=== PATIENT | female | born 1975 | race African-American/Black ===

== ENCOUNTER 2017-07-22 23:13 | Emergency (ER) | payer BC ==
[2017-07-22] MEDS ORDERED: Ondansetron HCl/PF 4 MG/2 ML Vial ONE (23:36)
[2017-07-22 23:58] LABS: #Basophils 0.1 thou/uL (0.0-0.2); #Eosinphils 0.3 thou/uL (0.0-0.7); #Monocytes 0.6 thou/uL (0.11-0.59); #Neutrophils 4.5 thou/uL (1.40-6.50); %Basophils 1.3 % (0.0-1.0); %Eosinophils 3.1 % (0.0-10.0); %Monocytes 7.6 % (0.0-10.0); Hemoglobin 12.2 g/dL (12.0-16.0); Mean Corpuscular HGB CONC 31.9 g/dL (32.0-36.0); Mean Corpuscular Hemoglobin 25.4 pg (27.0-31.0); Mean Corpuscular Volume 79.6 fl (81.0-99.0); Mean Platelet Volume 8.8 fL (7.4-10.4); Platelet Count 257 thou/uL (130-400); RBC Distribution Width 12.7 % (11.5-14.5); White Blood Cell (WBC) Count 8.5 thou/uL (4.8-10.8)
[2017-07-23 01:32] LABS: ALT (SGPT) 16 U/L (8-55); AST (SGOT) 11 U/L (5-34); Albumin 3.4 g/dL (3.5-5.0); Alkaline Phosphatase 58 U/L (40-150); Anion Gap 9 mmol/L (10-20); BUN (Urea Nitrogen) 13 mg/dL (7.0-18.7); Bilirubin, Total 0.2 mg/dL (0.2-1.2); Calc. Creatinine Clearance 0 mL/min (70-130); Calcium 8.4 mg/dL (7.8-10.44); Carbon Dioxide 24 mmol/L (22-29); Chloride 108 mmol/L (98-107); Estimated GFR-MDRD Greater than 90; Globulin 2.7 g/dL (2.4-3.5); Glucose 100 mg/dL (70-105); Protein, Total 6.1 g/dL (6.0-8.3); Sodium 137 mmol/L (136-145)
[2017-07-23 02:09] LABS: Bilirubin Negative (Negative); Blood, Urine Negative (Negative); Clarity CLEAR (Clear); Glucose, Urine (Dipstick) Negative (Negative); Leukocyte Small (Negative); Nitrite Negative (Negative); Protein, Urine (Dipstick) Negative (Neg-Trace); Specific Gravity, Urine 1.012 (1.002-1.036); Urobilinogen 0.2 mg/dL (0.2-1.0)
[2017-07-23 02:10] LABS: Pregnancy Test - Urine (BHCG) Negative (Negative)
[2017-07-23 02:11] LABS: Bacteria/HPF Rare-Few HPF (None Seen); Hyaline Casts/LPF 0-3 HYALINE CAST LPF (0-3 Hyaline); Pregu Control Background? CLEAR/WHITE (CLR/WHITE); Pregu Control Bar Appear? YES (CONTROL BAR); RBC/HPF 0-3 HPF (0-3); Specific Gravity 1.012 (1.002-1.036)
--- NOTE | 2017-07-23 07:05 | ULT ---
PELVIS ULTRASOUND: 07/22/2017 HISTORY: Left lower quadrant pain. History of uterine ablation for heavy bleeding. history of ovarian cysts. COMPARISON: None. TECHNIQUE: Multiplanar jerome-scale sonographic imaging of the pelvis obtained with transabdominal and endovaginal imaging. The ovaries are assessed with color-flow and spectral analysis. FINDINGS: The endometrium is thin, linear, and echogenic, measuring 3-4 mm in AP dimension. This appearance ma y, in part, be on the basis of the patient's history of uterine ablation. The uterus measures 8.7 x 3.6 x 5.2 cm. There is a hypoechoic/cystic area within the uterus, near the fundus, within the submucosal region, m easuring 1.6 x 1.2 x 2.2 cm, nonspecific. This may represent a submucosal cyst or a cystic fibroid. The right ovary measures 4.2 x 3.8 x 2.3 cm, and the left ovary measures 4.5 x 3 x 3.1 cm. There is a right ovarian cyst, measuring 1.2 x 1.9 x 1.3 cm, and there is a left ovarian cyst, measuring 1.5 x 1.1 x 2 cm. There is normal blood flow within both ovaries. No free fluid is seen in the pelvis. There is hypoechoic area in the region of the cervix, measuring 6 x 8 x 6 mm, which may represent a c omplex nabothian cyst or a low lying fibroid. IMPRESSION: Numerous incidental findings, as described above. No acute findings are noted. POS: [facility]
== END 2017-07-23 02:36 | disposition home or self-care (01) ==
LOC: ERS 23:13
DX: R10.32 Left lower quadrant pain (principal); F17.210 Nicotine dependence, cigarettes, uncomplicated
CPT/HCPCS: 76856; 80053; 81003; 81015; 81025; 85025; 87086; 96361; 96374; 96375; 99406; J2270; J2405

== ENCOUNTER 2017-08-05 14:49 | Outpatient (CLI) | payer BC | END 2017-08-05 14:50 | disposition home or self-care (01) | LOC: BICMAMMO 14:49 | PROVIDERS: ATTEND Physician Assistant | DX: Z12.31 Encounter for screening mammogram for malignant neoplasm of breast (principal) | CPT/HCPCS: 77063; 77067 ==

== ENCOUNTER 2018-01-30 19:25 | Emergency (ER) | payer BC ==
[2018-01-30 19:48] LABS: #Basophils 0.1 thou/uL (0.0-0.2); #Eosinphils 0.3 thou/uL (0.0-0.7); #Monocytes 0.7 thou/uL (0.11-0.59); #Neutrophils 4.1 thou/uL (1.40-6.50); %Eosinophils 2.7 % (0.0-10.0); %Lymphocytes 49.4 % (21.0-51.0); %Monocytes 6.6 % (0.0-10.0); %Neutrophils 40.3 % (42.0-75.0); Hemoglobin 12.4 g/dL (12.0-16.0); Mean Corpuscular HGB CONC 33.3 g/dL (32.0-36.0); Mean Corpuscular Hemoglobin 25.8 pg (27.0-31.0); Mean Corpuscular Volume 77.3 fL (78.0-98.0); Mean Platelet Volume 7.9 fL (7.4-10.4); Platelet Count 281 thou/uL (130-400); RBC Distribution Width 12.6 % (11.5-14.5); Red Blood Cell (RBC) Count 4.82 mill/uL (4.20-5.40); White Blood Cell (WBC) Count 10.2 thou/uL (4.8-10.8)
[2018-01-30 20:08] LABS: ALT (SGPT) 19 U/L (8-55); AST (SGOT) 14 U/L (5-34); Albumin 3.9 g/dL (3.5-5.0); Alkaline Phosphatase 71 U/L (40-150); Anion Gap 12 mmol/L (10-20); BUN (Urea Nitrogen) 9 mg/dL (7.0-18.7); Bilirubin, Total 0.2 mg/dL (0.2-1.2); Calc. Creatinine Clearance 0 mL/min (70-130); Calcium 8.6 mg/dL (7.8-10.44); Carbon Dioxide 23 mmol/L (22-29); Chloride 106 mmol/L (98-107); Estimated GFR-MDRD Greater than 90; Globulin 3.3 g/dL (2.4-3.5); Glucose 104 mg/dL (70-105); Lipase 18 U/L (8-78); Protein, Total 7.2 g/dL (6.0-8.3); Sodium 138 mmol/L (136-145)
[2018-01-30] MEDS ORDERED: Ondansetron HCl/PF 4 MG/2 ML Vial ONE (20:09)
[2018-01-30 20:10] LABS: Potassium 2.9 mmol/L (3.5-5.1)
[2018-01-30 20:14] LABS: BHCG - Serum Negative (NEGATIVE); Pregs Control Background? CLEAR/WHITE (CLR/WHITE); Pregs Control Bar Appear? YES (CONTROL BAR)
--- NOTE | 2018-01-30 20:59 | ULT ---
SONOGRAM RIGHT UPPER QUADRANT 01/30/18 HISTORY: Right upper quadrant pain. FINDINGS: Gallbladder has a normal appearance. Common duct is 0.2 cm. Liver unremarkable without focal mass or intrahepatic biliary dilatation. No free fluid. IMPRESSION: No evidence of gallstones or biliary obstruction. POS: [facility]
[2018-01-30] MEDS ORDERED: Potassium Chloride 20 MEQ TAB ONE (21:25)
[2018-01-30 21:48] LABS: Bilirubin Negative (Negative); Blood, Urine Negative (Negative); Clarity CLEAR (Clear); Glucose, Urine (Dipstick) Negative (Negative); Leukocyte Negative (Negative); Nitrite Negative (Negative); Protein, Urine (Dipstick) Negative (Neg-Trace); Specific Gravity, Urine 1.005 (1.002-1.036); Urobilinogen 0.2 mg/dL (0.2-1.0)
[2018-01-30] MEDS ORDERED: Lidocaine Viscous Sol 2% 15 ml UD Cup ONE (22:02)
[2018-01-30] MEDS ORDERED: Mag-Al 1200 mg/1200 mg/30 ML UDCUP ONE (22:02)
[2018-01-30 22:41] LABS: CKMB 1.1 ng/mL (0-6.6); Troponin I Less than 0.010 ng/mL (< 0.028)
== END 2018-01-30 22:47 | disposition home or self-care (01) ==
LOC: ERS 19:25
DX: R10.11 Right upper quadrant pain (principal); F17.210 Nicotine dependence, cigarettes, uncomplicated; Z71.6 Tobacco abuse counseling
CPT/HCPCS: 36415; 76705; 80053; 81003; 82553; 83690; 84484; 84703; 85025; 93005; 96361; 96372; 96374; 96375; 99406; J2270; J2405

== ENCOUNTER 2018-02-17 07:21 | Outpatient (CLI) | payer BC ==
--- NOTE | 2018-02-17 13:30 | NM ---
NUCLEAR MEDICINE HIDA SCAN: HISTORY: Right upper quadrant pain. COMPARISON: None. TECHNIQUE: The patient was administered 5.3 mCi of Technetium 99m mebrofenin intravenously. The patient was giv en 8 ounces of Ensure to determine EF. FINDINGS: There is appropriate uptake of the radiotracer by the hepatic parenchyma. There is passage of radiot racer from the common bile duct into the small bowel loops. There is localization of radiotracer int o the gallbladder. Gallbladder ejection fraction is 54%. IMPRESSION: 1. No sonographic evidence of acute cholecystitis. 2. Normal gallbladder ejection fraction. POS: [facility]
== END 2018-02-17 07:22 | disposition home or self-care (01) ==
LOC: NM 07:21
PROVIDERS: ATTEND Family Medicine
DX: R10.11 Right upper quadrant pain (principal)
CPT/HCPCS: 78227; A9537

== ENCOUNTER 2018-09-01 23:17 | Emergency (ER) | payer BC ==
[2018-09-01] MEDS ORDERED: Metoclopramide HCl 10 MG/2 ML VIAL ONE (23:50)
[2018-09-01] MEDS ORDERED: diphenhydrAMINE 50 MG/ML VIAL ONE (23:50)
[2018-09-02] MEDS ORDERED: Ketorolac Tromethamine 30 MG/ML VIAL ONE (00:30)
--- NOTE | 2018-09-02 08:10 | CT ---
FPRELIMINARY REPORT BY [facility]: EXAM: CT Head Without Contrast EXAM DATE/TIME: 09/02/2018 12:00 AM CLINICAL HISTORY: 43 years old, female; Pain; Headache; Headache not specified; Patient HX: Headache since yesterday- no history of migraines, constant throbbing on right side TECHNIQUE: Imaging protocol: Axial computed tomography images of the head/brain without contrast. COMPARISON: No relevant prior studies available. FINDINGS: Brain: No acute findings. No hemorrhage. No significant white matter disease. No edema. Ventricles: No acute findings. No ventriculomegaly. Bones/joints: No acute fracture. Sinuses: No acute findings. No significant air-fluid levels. Mastoid air cells: No acute findings. No mastoid effusion. Soft tissues: No acute findings. IMPRESSION: No acute intracranial abnormality. Thank you for allowing us to participate in the care of your patient. Dictated and Authenticated by: Jose Barr MD 09/02/2018 1:09 AM Central Time ([place] & [place]) Final interpretation CT head without contrast: 09/02/2018 HISTORY: Headache FINDINGS: I agree with the preliminary fever had report. The imaged paranasal sinuses and mastoid air cells are well aerated. No displaced calvarial fracture, intracranial hemorrhage, midline shift, or mass effect. IMPRESSION: No acute findings CODE QA Transcribed Date/Time: 09/02/2018 8:09 AM
== END 2018-09-02 01:45 | disposition home or self-care (01) ==
LOC: ERS 23:17
DX: R51 Headache (principal); F17.210 Nicotine dependence, cigarettes, uncomplicated
CPT/HCPCS: 70450; 93005; 96365; 96375; J1200; J1885; J2765

== ENCOUNTER 2018-11-23 19:57 | Emergency (ER) | payer BC ==
[2018-11-23 20:23] LABS: #Basophils 0.1 thou/uL (0.0-0.2); #Eosinphils 0.3 thou/uL (0.0-0.7); #Lymphocytes 2.8 thou/uL (1.20-3.40); #Monocytes 0.6 thou/uL (0.11-0.59); #Neutrophils 4.2 thou/uL (1.40-6.50); %Basophils 1.6 % (0.0-1.0); %Eosinophils 3.5 % (0.0-10.0); %Lymphocytes 35.5 % (21.0-51.0); %Neutrophils 52.5 % (42.0-75.0); Mean Corpuscular HGB CONC 31.7 g/dL (32.0-36.0); Mean Corpuscular Hemoglobin 25.1 pg (27.0-31.0); Mean Corpuscular Volume 79.2 fL (78.0-98.0); Mean Platelet Volume 8.2 fL (7.4-10.4); Platelet Count 253 thou/uL (130-400); RBC Distribution Width 12.1 % (11.5-14.5); Red Blood Cell (RBC) Count 4.78 mill/uL (4.20-5.40)
[2018-11-23] MEDS ORDERED: Meclizine HCl 25 MG TAB ONE (20:34)
[2018-11-23 20:43] LABS: ALT (SGPT) 17 U/L (8-55); AST (SGOT) 11 U/L (5-34); Albumin 3.7 g/dL (3.5-5.0); Alkaline Phosphatase 69 U/L (40-150); Anion Gap 11 mmol/L (10-20); BUN (Urea Nitrogen) 8 mg/dL (7.0-18.7); Bilirubin, Total 0.3 mg/dL (0.2-1.2); Calc. Creatinine Clearance 0 mL/min (70-130); Calcium 8.9 mg/dL (7.8-10.44); Carbon Dioxide 27 mmol/L (22-29); Chloride 105 mmol/L (98-107); Estimated GFR-MDRD Greater than 90; Glucose 93 mg/dL (70-105); Potassium 3.3 mmol/L (3.5-5.1); Protein, Total 6.7 g/dL (6.0-8.3); Sodium 140 mmol/L (136-145)
[2018-11-23] MEDS ORDERED: Lorazepam 2 MG/ML VIAL ONE (21:06)
[2018-11-23] MEDS ORDERED: Dexamethasone 10 MG/ML VIAL ONE (21:06)
== END 2018-11-23 21:58 | disposition home or self-care (01) ==
LOC: ERS 19:57
DX: R42 Dizziness and giddiness (principal); R11.0 Nausea; F17.210 Nicotine dependence, cigarettes, uncomplicated
CPT/HCPCS: 36415; 80053; 85025; 96374; 96375; J1100; J2060; J8597

== ENCOUNTER 2019-03-24 01:34 | Emergency (ER) | payer BC ==
[2019-03-24] MEDS ORDERED: diphenhydrAMINE 50 MG/ML VIAL ONE (02:00)
[2019-03-24] MEDS ORDERED: Metoclopramide HCl 10 MG/2 ML VIAL ONE (02:00)
[2019-03-24] MEDS ORDERED: Dexamethasone 10 MG/ML VIAL ONE (02:00)
== END 2019-03-24 03:25 | disposition home or self-care (01) ==
LOC: ERS 01:34
DX: R51 Headache (principal); F17.210 Nicotine dependence, cigarettes, uncomplicated; Z71.6 Tobacco abuse counseling
CPT/HCPCS: 96365; 96367; 96375; 99406; J1100; J1200; J2765; J3475; J3490

== ENCOUNTER 2019-06-15 23:13 | Emergency (ER) | payer BC ==
[2019-06-15 23:51] LABS: #Basophils 0.1 thou/uL (0.0-0.2); #Eosinphils 0.3 thou/uL (0.0-0.7); #Lymphocytes 2.7 thou/uL (1.20-3.40); #Monocytes 0.8 thou/uL (0.11-0.59); #Neutrophils 5.8 thou/uL (1.40-6.50); %Basophils 1.4 % (0.0-1.0); %Eosinophils 3.1 % (0.0-10.0); %Lymphocytes 27.9 % (21.0-51.0); %Monocytes 8.2 % (0.0-10.0); %Neutrophils 59.4 % (42.0-75.0); Hemoglobin 12.2 g/dL (12.0-16.0); Mean Corpuscular HGB CONC 32.1 g/dL (32.0-36.0); Mean Corpuscular Volume 77.7 fL (78.0-98.0); Mean Platelet Volume 8.9 fL (7.4-10.4); Platelet Count 261 thou/uL (130-400); RBC Distribution Width 12.2 % (11.5-14.5); Red Blood Cell (RBC) Count 4.89 mill/uL (4.20-5.40); White Blood Cell (WBC) Count 9.8 thou/uL (4.8-10.8)
[2019-06-16 00:11] LABS: ALT (SGPT) 18 U/L (8-55); AST (SGOT) 13 U/L (5-34); Albumin 3.6 g/dL (3.5-5.0); Alkaline Phosphatase 65 U/L (40-110); Anion Gap 10 mmol/L (10-20); BUN (Urea Nitrogen) 10 mg/dL (7.0-18.7); Bilirubin, Total 0.3 mg/dL (0.2-1.2); Calc. Creatinine Clearance 0 mL/min (70-130); Calcium 8.6 mg/dL (7.8-10.44); Carbon Dioxide 24 mmol/L (22-29); Chloride 108 mmol/L (98-107); Estimated GFR-MDRD Greater than 90; Globulin 3.1 g/dL (2.4-3.5); Glucose 103 mg/dL (70-105); Lipase 17 U/L (8-78); Potassium 3.9 mmol/L (3.5-5.1); Protein, Total 6.7 g/dL (6.0-8.3); Sodium 138 mmol/L (136-145)
[2019-06-16] MEDS ORDERED: Ondansetron PF 4 MG/2 ML Vial ONE (00:11)
[2019-06-16] MEDS ORDERED: Morphine 4 MG/ML VIAL ONE (00:11)
[2019-06-16 00:41] LABS: Bilirubin Negative (Negative); Blood, Urine Negative (Negative); Clarity Clear (Clear); Glucose, Urine (Dipstick) Normal (Negative); Leukocyte Negative Leu/uL (Negative); Nitrite Negative (Negative); Protein, Urine (Dipstick) Negative (Neg-Trace); Urobilinogen Normal mg/dL (Less than 2)
[2019-06-16 01:02] LABS: Pregnancy Test - Urine (BHCG) Negative (Negative); Pregu Control Background? CLEAR/WHITE (CLR/WHITE); Pregu Control Bar Appear? YES (CONTROL BAR); Specific Gravity 1.024 (1.002-1.036)
== END 2019-06-16 01:35 | disposition home or self-care (01) ==
LOC: ERS 23:13
DX: R10.31 Right lower quadrant pain (principal); F17.210 Nicotine dependence, cigarettes, uncomplicated; Z71.6 Tobacco abuse counseling
CPT/HCPCS: 80053; 81003; 81025; 83690; 85025; 96361; 96374; 96375; 99406; J2270; J2405

== ENCOUNTER 2020-09-07 11:50 | Outpatient (CLI) | payer BC | END 2020-09-07 11:51 | disposition home or self-care (01) | LOC: BICMAMMO 11:50 | PROVIDERS: ATTEND Physician Assistant | DX: Z12.31 Encounter for screening mammogram for malignant neoplasm of breast (principal); Z80.3 Family history of malignant neoplasm of breast | CPT/HCPCS: 77063; 77067 ==

== ENCOUNTER 2021-07-20 11:01 | Emergency (ER) | payer BC ==
[2021-07-20] MEDS ORDERED: Ketorolac Tromethamine 30 MG/ML VIAL ONE (12:49)
== END 2021-07-20 13:00 | disposition home or self-care (01) ==
LOC: ERS 11:01
DX: S39.012A Strain of muscle, fascia and tendon of lower back, initial encounter (principal); M62.830 Muscle spasm of back; F17.210 Nicotine dependence, cigarettes, uncomplicated; X58.XXXA Exposure to other specified factors, initial encounter
CPT/HCPCS: 96372; 99283; J1885

== ENCOUNTER 2021-09-08 11:48 | Outpatient (CLI) | payer BC | END 2021-09-08 11:49 | disposition home or self-care (01) | LOC: BICMAMMO 11:48 | PROVIDERS: ATTEND Physician Assistant | DX: Z12.31 Encounter for screening mammogram for malignant neoplasm of breast (principal); Z80.3 Family history of malignant neoplasm of breast | CPT/HCPCS: 77063; 77067 ==

== ENCOUNTER 2021-11-27 18:52 | Emergency (ER) | payer BC, SELFPAY ==
[2021-11-27 20:19] LABS: BHCG - Serum Negative (NEGATIVE); Pregs Control Background? CLEAR/WHITE (CLR/WHITE); Pregs Control Bar Appear? YES (CONTROL BAR)
[2021-11-27 20:24] LABS: Hemoglobin 12.4 g/dL (12.0-16.0); Mean Corpuscular HGB CONC 30.3 g/dL (32.0-36.0); Mean Corpuscular Hemoglobin 24.2 pg (27.0-31.0); Mean Corpuscular Volume 80.1 fL (78.0-98.0); Mean Platelet Volume 9.2 fL (7.4-10.4); Platelet Count 228 thou/uL (130-400); RBC Distribution Width 12.5 % (11.5-14.5); Red Blood Cell (RBC) Count 5.12 mill/uL (4.20-5.40)
[2021-11-27 20:35] LABS: ALT (SGPT) 30 U/L (8-55); AST (SGOT) 27 U/L (5-34); Albumin 3.7 g/dL (3.5-5.0); Alkaline Phosphatase 64 U/L (40-110); Anion Gap 13 mmol/L (10-20); BUN (Urea Nitrogen) 9 mg/dL (7.0-18.7); Bilirubin, Total 0.6 mg/dL (0.2-1.2); Calc. Creatinine Clearance 0 mL/min (70-130); Carbon Dioxide 26 mmol/L (22-29); Chloride 103 mmol/L (98-107); Globulin 3.3 g/dL (2.4-3.5); Glucose 99 mg/dL (70-105); Lipase 15 U/L (8-78); Potassium 3.3 mmol/L (3.5-5.1); Sodium 139 mmol/L (136-145)
[2021-11-27 20:46] LABS: Band 2 % (5-11); Eosinophils 1 % (0-10); Hypochromia SLIGHT = 6-15 cells (100X) (0-5/hpf); Lymphocytes 56 % (21-51); MDiff Complete? YES; Monocytes 6 % (0-10); Neutrophil 34 % (42-75); Platelet Morphology Comment Appears Adequate; Polychromasia SLIGHT = 2-3 cells (100X) (0-2/hpf); Target Cells SLIGHT = 2-5 cells (100X) (0-1/hpf); Tear Drops SLIGHT = 2-5 cells (100X) (0-1/hpf)
[2021-11-27 22:09] LABS: Bacteria/HPF None Seen HPF (None Seen); Bilirubin Negative (Negative); Blood, Urine Negative (Negative); Clarity Clear (Clear); Glucose, Urine (Dipstick) Normal (Negative); Ketone, Urine Negative (Negative); Leukocyte 75 Leu/uL (Negative); Mucous/LPF Rare LPF (<2+); Nitrite Negative (Negative); Protein, Urine (Dipstick) 10 mg/dL (Neg-Trace); RBC/HPF 0-3 HPF (0-3); Specific Gravity, Urine 1.032 (1.002-1.036); Urobilinogen 6 mg/dL (Less than 2); WBC/HPF 0-3 HPF (0-3); pH, Urine 5.5 (5.0-9.0)
[2021-11-27] MEDS ORDERED: Ondansetron PF 4 MG/2 ML Vial ONE (22:10)
== END 2021-11-27 23:01 | disposition home or self-care (01) ==
LOC: ERS 18:52
DX: A08.4 Viral intestinal infection, unspecified (principal); F17.210 Nicotine dependence, cigarettes, uncomplicated
CPT/HCPCS: 71045; 80053; 81003; 81015; 83690; 84484; 84703; 85025; 93005; 96361; 96374; J2405

== ENCOUNTER 2023-04-03 14:11 | Outpatient (CLI) | payer BC | END 2023-04-03 14:12 | disposition home or self-care (01) | LOC: BICMAMMO 14:11 | PROVIDERS: ATTEND Physician Assistant | DX: Z12.31 Encounter for screening mammogram for malignant neoplasm of breast (principal); Z80.3 Family history of malignant neoplasm of breast | CPT/HCPCS: 77063; 77067 ==

== ENCOUNTER 2024-04-17 19:55 | Emergency (ER) | payer BC, SELFPAY ==
[2024-04-17] MEDS ORDERED: Aspirin Chewable 81 MG TAB ONE (20:05)
[2024-04-17] MEDS ORDERED: Cyclobenzaprine 10 MG TAB ONE (20:06)
[2024-04-17 20:38] LABS: #Basophils 0.06 10x3/uL (0.0-0.2); %Basophils 0.7 % (0.0-1.0); %Eosinophils 2.8 % (0.0-10.0); %Lymphocytes 35.3 % (21.0-51.0); %Monocytes 8.2 % (0.0-10.0); %Neutrophils 52.7 % (42.0-75.0); Hematocrit 36.9 % (36.0-47.0); Hemoglobin 11.6 g/dL (12.0-16.0); Mean Corpuscular HGB CONC 31.4 g/dL (32.0-36.0); Mean Corpuscular Hemoglobin 23.9 pg (27.0-31.0); Mean Corpuscular Volume 75.9 fL (78.0-98.0); Mean Platelet Volume 10.1 fL (7.4-10.4); Platelet Count 292 10x3/uL (130-400); RBC Distribution Width 13.7 % (11.5-14.5); Red Blood Cell (RBC) Count 4.86 mill/uL (4.20-5.40)
[2024-04-17] MEDS ORDERED: Ketorolac Tromethamine 30 MG (1 mL) VIAL ONE (20:42)
[2024-04-17 20:52] LABS: ALT (SGPT) 29 U/L (8-55); AST (SGOT) 17 U/L (5-34); Albumin 3.3 g/dL (3.5-5.0); Alkaline Phosphatase 66 U/L (40-110); Anion Gap 12 mmol/L (10-20); BUN (Urea Nitrogen) 10 mg/dL (7.0-18.7); Bilirubin, Total 0.2 mg/dL (0.2-1.2); Calc. Creatinine Clearance 0 mL/min (70-130); Calcium 8.5 mg/dL (7.8-10.44); Carbon Dioxide 23 mmol/L (22-29); Chloride 104 mmol/L (98-107); Estimated GFR 107; Globulin 3.3 g/dL (2.4-3.5); Glucose 98 mg/dL (70-105); Potassium 3.7 mmol/L (3.5-5.1); Protein, Total 6.6 g/dL (6.0-8.3); Sodium 135 mmol/L (136-145)
[2024-04-17 20:57] LABS: Troponin I Less than 0.010 ng/mL (< 0.028)
== END 2024-04-17 21:20 | disposition home or self-care (01) ==
LOC: ERS 19:55
DX: M54.6 Pain in thoracic spine (principal); F17.210 Nicotine dependence, cigarettes, uncomplicated
CPT/HCPCS: 36415; 71045; 80053; 84484; 85025; 93005; 96372; J1885

== ENCOUNTER 2024-05-26 08:11 | Outpatient (CLI) | payer BC, OTHER | END 2024-05-26 08:12 | disposition home or self-care (01) | LOC: BICMAMMO 08:11 | DX: Z12.31 Encounter for screening mammogram for malignant neoplasm of breast (principal); Z80.3 Family history of malignant neoplasm of breast | CPT/HCPCS: 77063; 77067 ==